=== PATIENT | male | born 1980 ===

== ENCOUNTER 2017-07-21 08:58 | Emergency (ER) | payer OTHER ==
[2017-07-21 09:21] VITALS: TEMP 97.8
[2017-07-21] MEDS ORDERED: Oxycodone/Acetaminophen 5/325 mg Tab PO STA (09:36)
--- NOTE | 2017-07-21 09:37 | ED PDOC ---
Arrival/HPI - General Chief Complaint: Finger,Hand,&Wrist Time Seen by Provider: 07/21/17 09:34 Historian: Patient - History of Present Illness Narrative History of Present Illness (Text): 07/21/17 09:48 37yo male with no PMHx present with complaint of left hand pain s/p trauma this morning. States a 100pound weight luisa fell on top of his left hand this morning , while working. Reports severe pain to the hand. Denies focal weakness, paresthesia, any other complaint. . Past Medical History - Provider Review Nursing Documentation Reviewed: Yes - Psychiatric Hx Psychophysiologic Disorder: No Hx Substance Use: No - Surgical History Hx Appendectomy: Yes Family/Social History - Physician Review Nursing Documentation Reviewed: Yes Family/Social History: Unknown Family HX Smoking Status: Never Smoked Hx Alcohol Use: Yes Frequency of alcohol use: Socially Hx Substance Use: No Allergies/Home Meds Allergies/Adverse Reactions: Allergies No Known Allergies Allergy (Verified 07/21/17 09:16) Review of Systems - Physician Review All systems were reviewed & negative as marked: Yes - Review of Systems Constitutional: Normal Eyes: Normal ENT: Normal Respiratory: Normal Cardiovascular: Normal Gastrointestinal: Normal Genitourinary Male: Normal Musculoskeletal: Arthralgias (Left hand pain) Skin: Normal Neurological: Normal Endocrine: Normal Hemo/Lymphatic: Normal Psychiatric: Normal Physical Exam Vital Signs Reviewed: Yes Vital Signs Temp Pulse Resp BP Pulse Ox 07/21/17 10:35 80 17 130/68 100 07/21/17 09:19 97.8 F 84 16 123/83 97 Temperature: Afebrile Blood Pressure: Normal Pulse: Regular Respiratory Rate: Normal Appearance: Positive for: Well-Appearing, Non-Toxic, Comfortable Pain Distress: None Mental Status: Positive for: Alert and Oriented X 3 - Systems Exam Head: Present: Atraumatic, Normocephalic Pupils: Present: PERRL Extroacular Muscles: Present: EOMI Conjunctiva: Present: Normal Mouth: Present: Moist Mucous Membranes Neck: Present: Normal Range of Motion Respiratory/Chest: Present: Clear to Auscultation, Good Air Exchange. No: Respiratory Distress, Accessory Muscle Use Cardiovascular: Present: Regular Rate and Rhythm, Normal S1, S2. No: Murmurs Abdomen: Present: Normal Bowel Sounds. No: Tenderness, Distention, Peritoneal Signs Back: Present: Normal Inspection Upper Extremity: Present: NORMAL PULSES, Tenderness (Left volar hand worse over the 1st and 2nd metacarpals and fingers), Neurovascularly Intact. No: Cyanosis , Edema, Normal ROM (Limited of flexion of 1st and 2nd fingers), Swelling, Erythema, Deformity Lower Extremity: Present: Normal Inspection. No: Edema Neurological: Present: GCS=15, CN II-XII Intact, Speech Normal Skin: Present: Warm, Dry, Normal Color. No: Rashes Psychiatric: Present: Alert, Oriented x 3, Normal Insight, Normal Concentration Medical Decision Making ED Course and Treatment: 07/21/17 10:08 Left hand - Comminuted nondisplaced fracture of proximal left 2nd finger noted. Finger splint placed. Case was DW Dr. Sarkar, Plastic and he wants pt to f/u with his office this week. Request that pt be given the CD of his image. Result was DW the pt. He was referred to Dr. Sarkar. Advised to call today and see him in the office this week. Perocet and ibuprofen 600mg rx given for pain. - RAD Interpretation Radiology Orders: 07/21/17 09:36 HAND LEFT 3 VIEWS ROUTINE [RAD] Stat - Medication Orders Current Medication Orders: Discontinued Medications Oxycodone/Acetaminophen (Percocet 5/325 Mg Tab) 1 tab PO STAT STA Stop: 07/21/17 09:37 Last Admin: 07/21/17 09:41 Dose: 1 tab MAR Pain Assessment Document 07/21/17 09:41 SE (Rec: 07/21/17 09:41 [id number]) Pain Reassessment Is this a pain reassessment? No Sleep Is patient sleeping during reassessment? No Presence of Pain Presence of Pain Yes Pain Scale Used Pain Scale Used Numeric Location Left, Right or Bilateral Left Pain Location Body Site Hand Disposition/Present on Arrival - Present on Arrival Any Indicators Present on Arrival: No History of DVT/PE: No History of Uncontrolled Diabetes: No Urinary Catheter: No History of Decub. Ulcer: No History Surgical Site Infection Following: None - Disposition Have Diagnosis and Disposition been Completed?: Yes Diagnosis: Finger fracture Disposition: HOME/ ROUTINE Disposition Time: 10:10 Patient Plan: Discharge Condition: STABLE Discharge Instructions (ExitCare): Finger Fracture (ED) Additional Instructions: Follow up with orthopedist/hand specialist Return to ED for any new or worsneign symptoms Prescriptions: Ibuprofen [Motrin Tab] 600 mg PO Q6 #20 tab oxyCODONE/Acetaminophen [Percocet 5/325 mg Tab] 1 ea PO Q6 #6 tab Referrals: Yordan Medrano III, MD [Medical Doctor] - Follow up with primary Higinio Sarkar MD [Staff Provider] - Follow up with primary Forms: [employer] (M[place]ese), WORK NOTE
--- NOTE | 2017-07-21 10:07 | RAD ---
PROCEDURE: Left Hand Radiographs. HISTORY: hand pain s/p trauma COMPARISON: None. FINDINGS: BONES: There is an acute nondisplaced comminuted fracture in the base of the proximal phalanx of the 2nd digit. JOINTS: Normal. No osteoarthritic changes. SOFT TISSUES: Diffuse soft tissue swelling in the 2nd finger. OTHER FINDINGS: None. IMPRESSION: Acute comminuted nondisplaced fracture in the base of the proximal phalanx of the 2nd finger with diffuse soft tissue swelling.
[2017-07-21 10:36] VITALS: BP 130/68; PULSE 80; RESP 17; O2SAT 100
== END 2017-07-21 10:33 | disposition home or self-care (01) ==
LOC: ED 08:58
DX: S62.641A Nondisplaced fracture of proximal phalanx of left index finger, initial encounter for closed fracture (principal); W22.8XXA Striking against or struck by other objects, initial encounter; Y92.89 Other specified places as the place of occurrence of the external cause; Y99.0 Civilian activity done for income or pay